=== PATIENT | male | born 1955 ===

== ENCOUNTER 2017-09-11 21:22 | Emergency (ER) | payer SELFPAY ==
[2017-09-11 23:43] LABS: ADD MAN DIFF? NO
[2017-09-11 23:46] LABS: BASOPHILS % 0.3 % (0.0-2.0); HEMOGLOBIN 15.2 g/dl (14.0-18.0); LYMPHOCYTES # 0.6 10^3/ul (0.8-2.9); LYMPHOCYTES % 4.3 % (15.0-51.0); MEAN CORPUSCULAR HEMOGLOBIN 29.9 pg (29.0-33.0); MEAN CORPUSCULAR VOLUME 90.6 fl (82.0-101.0); MEAN PLATELET VOLUME 10.5 fl (7.4-10.4); MONOCYTE # 0.8 10^3/ul (0.3-0.9); MONOCYTES % 5.4 % (0.0-11.0); NEUTROPHIL # 13.5 10^3/ul (1.6-7.5); NEUTROPHILS % 89.4 % (39.0-77.0); PLATELET COUNT 221 10^3/UL (140-415); RED BLOOD COUNT 5.08 10^6/ul (4.70-6.10); RED CELL DISTRIBUTION WIDTH 13.6 % (11.5-14.5)
[2017-09-12 00:04] LABS: CARBON DIOXIDE 16 mmol/L (21-31); CHLORIDE 100 mmol/L (97-110); POTASSIUM 4.7 mmol/L (3.5-5.1); SODIUM 138 mmol/L (135-144)
[2017-09-12 00:05] LABS: ALANINE AMINOTRANSFERASE 40 IU/L (13-69); ALBUMIN/GLOBULIN RATIO 1.42; ALKALINE PHOSPHATASE 89 IU/L (42-121); ANION GAP 27 (8-16); ASPARTATE AMINO TRANSFERASE 45 IU/L (15-46); BILIRUBIN,INDIRECT 1.6 mg/dl (0-1.1); BILIRUBIN,TOTAL 1.6 mg/dl (0.2-1.3); BLOOD UREA NITROGEN 39 mg/dl (7-20); CALCIUM 9.9 mg/dl (8.4-10.2); CREATININE 1.63 mg/dl (0.61-1.24); GLUCOSE 120 mg/dl (70-220); TOTAL PROTEIN 8.5 g/dl (6.1-8.1)
[2017-09-12 00:23] LABS: ACETAMINOPHEN < 10.0 ug/ml (10.0-30.0); SALICYLATE < 1.0 mg/dl (5.0-30.0)
[2017-09-12] MEDS: SOD CHLORIDE 0.9% 1,000 ML IV ×2 (05:48→05:49)
[2017-09-12 06:52] LABS: URINE PH (Dip) POC 5.5 (5.0-8.5)
[2017-09-12 06:52] LABS: URINE BLOOD (Dip) POC Trace-lysed (NEGATIVE); URINE GLUCOSE (Dip) POC Negative (NEGATIVE); URINE KETONES (Dip) POC 3+ (NEGATIVE); URINE LEUKOCYTE EST (Dip) POC Negative (NEGATIVE); URINE NITRITE (Dip) POC Negative (NEGATIVE); URINE TOTAL PROTEIN POC Trace (NEGATIVE)
[2017-09-12] MEDS: LORAZEPAM 2 MG INJ IV (10:27)
== END 2017-09-12 18:21 ==
LOC: E/R 21:22
DX: R45.851 Suicidal ideations (principal); R40.2212 Coma scale, best verbal response, none, at arrival to emergency department; R40.2352 Coma scale, best motor response, localizes pain, at arrival to emergency department; R40.2112 Coma scale, eyes open, never, at arrival to emergency department; I13.10 Hypertensive heart and chronic kidney disease without heart failure, with stage 1 through stage 4 chronic kidney disease, or unspecified chronic kidney disease; N18.9 Chronic kidney disease, unspecified
CPT/HCPCS: 80053; 80306; 81003; 85025; 96374; 99284-25